=== PATIENT | male | born 1970 | race African-American/Black ===

== ENCOUNTER 2024-09-02 15:47 | Inpatient (IN) | payer OTHER ==
[2024-09-02 16:09] VITALS: BMI 25.7
[2024-09-02] MEDS ORDERED: ONDANSETRON *ODT* 4 MG TABLET SL PRN (17:34)
[2024-09-02] MEDS ORDERED: BISMUTH SUBSALICYLATE 524 MG/30 ML PO PRN (17:34)
[2024-09-02] MEDS ORDERED: ACETAMINOPHEN 325 MG TABLET (FP) PO PRN (17:34)
[2024-09-02] MEDS ORDERED: IBUPROFEN 600 MG TABLET (FP) PO PRN (17:34)
[2024-09-02] MEDS ORDERED: MAGNESIUM HYDROX 2400MG/30ML ORAL SUSPENSION 30 ML CUP PO PRN (17:34)
[2024-09-02] MEDS ORDERED: LOPERAMIDE HCL 2 MG CAPSULE PO PRN (17:34)
[2024-09-02] MEDS ORDERED: NALOXONE (NARCAN) HCL 4 MG/0.1 ML SPRAY NS PRN (17:34)
[2024-09-02] MEDS ORDERED: guaiFENesin 600 MG TABLET.ER (FP) PO PRN (17:34)
[2024-09-02] MEDS ORDERED: DICYCLOMINE HCL 10 MG CAPSULE PO PRN (17:34)
[2024-09-02] MEDS ORDERED: BENZOCAINE/MENTHOL (CHLORASEPTIC ) LOZENGE MM PRN (17:34)
[2024-09-02] MEDS ORDERED: IBUPROFEN 400 MG TABLET (FP) PO PRN (17:34)
[2024-09-02] MEDS ORDERED: BENZONATATE 200 MG CAPSULE PO PRN (17:34)
[2024-09-02] MEDS ORDERED: MAG HYDROX/AL HYDROX/SIMETH 30 ML UNIT-DOSE CUP PO PRN (17:34)
[2024-09-02] MEDS ORDERED: POLYETHYLENE GLYCOL (HEALTHYLAX) 3350 17 GM PACKET PO PRN (17:34)
[2024-09-02] MEDS: hydrOXYzine PAMOATE 25 MG CAPSULE (FP) PO PRN (22:42)
[2024-09-02] MEDS: THIAMINE 100 MG TABLET PO SCH (22:42)
[2024-09-02] MEDS: MELATONIN 5 MG TABLETS PO SCH (22:42)
[2024-09-02] MEDS: METHOCARBAMOL 500 MG TABLET PO PRN (22:42)
[2024-09-03] MEDS: PRENATAL VITAMINS W/ FOLIC ACID TABLET (FP) PO SCH (10:10)
[2024-09-03 12:40] LABS: HEMATOCRIT 36.9 % (40.1-51.0); HEMOGLOBIN 11.4 g/dL (13.7-17.5); MCHC 30.9 g/dl (32.3-36.5); MEAN CELL VOLUME 87.6 fl (79.0-92.2); MEAN PLT VOLUME 8.9 fl (9.4-12.4); PLATELET COUNT # 418 x10^3/uL (163-337); RDW 16.8 % (12.2-16.1)
[2024-09-03 12:48] LABS: CHLORIDE 106 mmol/L (98-107); POTASSIUM 4.1 mmol/L (3.5-5.1); SODIUM 140 mmol/L (136-145)
[2024-09-03 12:54] LABS: ALBUMIN 3.6 g/dl (3.4-5.0); ANION GAP 8 mmol/L (4-13); BLOOD UREA NITROGEN 9.6 mg/dL (7-18); CO2 26 mmol/L (21-32); GLUCOSE,RANDOM 102 mg/dL (74-106)
[2024-09-03 12:58] LABS: SGOT/AST 26 U/L (15-37); SGPT/ALT 23 U/L (13-61)
[2024-09-03 12:59] LABS: CREATININE 0.9 mg/dL (0.55-1.3)
[2024-09-03 13:00] LABS: BILIRUBIN,TOTAL 0.4 mg/dL (0.2-1); TOT PROT 7.2 g/dl (6.4-8.2)
[2024-09-03 13:01] LABS: ALK PHOS 102 U/L (45-117)
[2024-09-03 13:24] VITALS: BP 113/68; PULSE 73; RESP 18; TEMP 97.3
== END 2024-09-03 14:30 | disposition home or self-care (01) | DRG 774 ==
LOC: YASAS 15:47 → Y6N 17:51
PROVIDERS: ADMIT Allergy & Immunology; ATTEND Allergy & Immunology
PROC: HZ2ZZZZ Detoxification Services for Substance Abuse Treatment (ICD-10-PCS; principal; 2024-09-02)
DX: F10.20 Alcohol dependence, uncomplicated (principal); F14.20 Cocaine dependence, uncomplicated; F12.20 Cannabis dependence, uncomplicated; F17.210 Nicotine dependence, cigarettes, uncomplicated; F31.9 Bipolar disorder, unspecified; Z59.00 Homelessness unspecified; Z88.1 Allergy status to other antibiotic agents
CPT/HCPCS: 36415; 80053; 80305; 80307; 85027; 86780; 93005; 93010

== ENCOUNTER 2024-12-07 13:58 | Emergency (ER) | payer OTHER ==
[2024-12-07 14:09] VITALS: BMI 27.0
[2024-12-07] MEDS ORDERED: KETOROLAC TROMETHAMINE 30 MG/1 ML VIAL ONE (15:35)
[2024-12-07] MEDS: KETOROLAC TROMETHAMINE 30 MG/1 ML VIAL IM ONE (15:40)
[2024-12-07 17:34] LABS: HIV INTERPRETATION NEGATIVE (NEGATIVE)
[2024-12-07 17:35] LABS: HCV DIAGNOSTIC IN-HOUSE W/RFLX NON-REACTIVE (NONREACTIVE)
[2024-12-07 18:03] VITALS: BP 107/74; PULSE 61; RESP 17; TEMP 98
== END 2024-12-07 20:22 | disposition home or self-care (01) ==
LOC: JER 13:58
PROC: 3E0233Z Introduction of Anti-inflammatory into Muscle, Percutaneous Approach (ICD-10-PCS; principal; 2024-12-07)
DX: M25.552 Pain in left hip (principal); G89.29 Other chronic pain; R06.02 Shortness of breath; F10.10 Alcohol abuse, uncomplicated; F19.90 Other psychoactive substance use, unspecified, uncomplicated
CPT/HCPCS: 36415; 73502-TC-LT-FY; 86803; 87389; 96372; 99284-25